=== PATIENT | female | born 1960 | race Caucasian/White ===

== ENCOUNTER 2021-09-30 10:13 | Emergency (ER) | payer OTHER, SELFPAY ==
[2021-09-30] VITALS (8 sets, daily range): BP systolic 130–143; BP diastolic 65–82; PULSE 82–99; RESP 18; TEMP 37.2; O2SAT 94–98; BMI 27.4
[2021-09-30 11:01] LABS: Alanine Aminotransferase 41 IU/L (<35); Albumin 4.1 g/dL (3.5-5.0); Albumin Globulin Ratio 1.5 (1.0-2.8); Alkaline Phosphatase 45 U/L (38-126); Aspartate Aminotransferase 47 IU/L (14-36); BUN Creatinine Ratio 15.6 (6-22); Bilirubin Total 0.7 mg/dL (0.2-1.3); Blood Urea Nitrogen 12 mg/dL (7-17); Carbon Dioxide 25 mmol/L (22-32); Chloride 107 mmol/L (98-107); Estimated Glomerular Filt Rate > 60 mL/min (>60); Globulin 2.8 g/dL (1.7-4.1); Glucose 120 mg/dL (80-110); HEMOLYSIS < 15 (0-50); Lipase 73 U/L (23-300); Potassium 3.7 mmol/L (3.4-5.1); Sodium 140 mmol/L (137-145); Total Protein 6.9 g/dL (6.3-8.2)
[2021-09-30 11:10] LABS: Add Manual Diff / Slide Review NO; Basophils Absolute Auto 0 /uL (0-100); Basophils Percent Auto 0.5 % (0-2); Eosinophils Absolute Auto 0 /uL (0-450); Eosinophils Percent Auto 0.8 % (2-4); Hematocrit 42.5 % (36-46); Hemoglobin 14.6 g/dL (12.0-16.0); Lymphocytes Absolute Auto 1500 /uL (1100-4500); Mean Corpuscular HGB Conc 34.5 % (30-36); Mean Corpuscular Hemoglobin 32.7 PG (26-34); Monocytes Absolute Auto 500 /uL (0-900); Monocytes Percent Auto 8.7 % (3-14); Neutrophils Absolute Auto 3600 /uL (1500-7000); Platelet Count 227 X10^3/uL (150-400); Red Blood Cell Count 4.47 X10^6/uL (4.0-5.2); White Blood Cell Count 5.7 X10^3/uL (4.5-11.0)
--- NOTE | 2021-09-30 11:34 | DI.CT.S_ITS ---
PROCEDURE: CT ABDOMEN PELVIS W CON INDICATIONS: IV contrast only/right upper quadrant pain TECHNIQUE: After the administration of intravenous contrast, axial sections acquired from the lung bases to the pubic symphysis. Coronal and sagittal reformats were performed. For radiation dose reduction, the following was used: automated exposure control, adjustment of mA and/or kV according to patient size. COMPARISON: None. FINDINGS: Lower thorax: Minimal basilar atelectasis noted, right greater than left. Liver: In the right hepatic lobe, there is a solitary cystic mass lesion with probable internal necrosis measuring 6.3 x 4.2 x 6.0 cm. Irregular wall thickening enhancement present. Diffuse hepatic fatty infiltration noted. Biliary system: No calcified cholelithiasis or pericholecystic inflammation. No intra or extrahepatic bile duct dilatation. Pancreas: Unremarkable without mass or inflammation evident. Spleen: Normal in size and density. Adrenals: Normal morphology and density. Reproductive system: Unremarkable as visualized. Urinary system: Normal renal size and attenuation. No renal calculi, hydronephrosis, or solid mass present. Urinary bladder unremarkable. Gastrointestinal system: The bowel is unremarkable without evidence of bowel obstruction or inflammation. The stomach appears unremarkable. Multiple diverticula arise from the left and sigmoid colon without evidence of diverticulitis. Appendix: No findings to suggest acute appendicitis. Peritoneal spaces: No mesenteric or retroperitoneal adenopathy. No free air. No free fluid. Vasculature: The IVC, aorta and iliac vasculature are unremarkable. Abdominal wall: Abdominal wall intact without evidence of ventral or inguinal hernias. Musculoskeletal: Normal bone mineralization. Degenerative disc disease and arthropathy noted in lower lumbar spine. No acute fractures. IMPRESSION: 1. Irregular large cystic mass lesion in the right hepatic lobe. Primary neoplastic and metastatic etiologies considered. Less likely differential would be hepatic abscess. Approved by: Eric Cardoza M.D. on 09/30/2021 at 12:11
--- NOTE | 2021-09-30 11:35 | ED.ABDPAIN ---
HPI - Abdominal Pain General Chief Complaint: Abdominal Pain Stated Complaint: rt abd pain, extreme Time Seen by Provider: 09/30/21 11:12 Source: patient Mode of arrival: Family Vehicle History of Present Illness HPI narrative: Patient here for right upper quadrant pain it started yesterday evening and has been constant. Sharp pain right required radiate down to right lower quadrant. Worse with movement. No fever chills no nausea or vomiting. No urinary complaints. Still has her appendix and gallbladder. Patient treated for breast cancer in 2018. Had mastectomy. No chemotherapy no radiation. Patient does not recall other than mammograms any other imaging/MRI/PET scan. She is on tamoxifen. Her oncology services is in [place] Related Data Previous Rx's Medication Instructions Recorded hydrocodone 5 mg-acetaminophen 325 1 tab PO Q6H PRN pain #16 tabs 09/30/21 mg tablet ondansetron 4 mg disintegrating 4 mg PO Q8H PRN nausea and 09/30/21 tablet vomiting #10 tabs Allergies Allergy/AdvReac Type Severity Reaction Status Date / Time bee venom protein (honey bee) Allergy Anaphylaxis Verified 09/30/21 10:22 latex Allergy Hives Verified 09/30/21 10:22 erythromycin base AdvReac Vomiting Verified 09/30/21 10:21 Review of Systems Review of Systems Narrative: GENERAL: Denies chills, fatigue, malaise, fever, sweats. HEENT: Denies sinus pain, ear pain, sore throat RESPIRATORY: Denies dyspnea, cough CARDIOVASCULAR: Denies chest pain, palpitations GASTROINTESTINAL: Denies nausea, vomiting, positive for abdominal pain : Denies dysuria, frequency, hematuria MUSCULOSKELETAL: denies muscle or bony pain SKIN: Denies rash, skin lesions NEUROLOGIC: Denies weakness, numbness ROS Unobtainable: All systems reviewed & are unremarkable except as noted in HPI and below Patient History Social History Smoking Status: Never smoker Smoking Status: Never smoker alcohol intake frequency: 0-2 drinks per day Substance Use Type: does not use Exam Narrative Exam Narrative: GENERAL: in no distress, not toxic not dyspneic HEAD: Normocephalic. EYES: Pupils equal round No scleral icterus. ENT: Mucous membranes moist. NECK: Trachea midline. CARDIOVASCULAR: Regular rate and rhythm without murmurs RESPIRATORY: Clear to auscultation. Breath sounds equal bilaterally. No wheezes, rales, or rhonchi. GASTROINTESTINAL: Abdomen soft, reproducible right upper quadrant tenderness, positive Guerra sign. No CVA tenderness. Bowel sounds are present. No peritoneal signs. EXTREMITIES: No gross deformities. BACK: No flank tenderness. NEURO: AOx4. SKIN: Warm and dry PSYCH: Not anxious, is cooperative Initial Vital Signs Initial Vital Signs: Vital Signs Temperature 98.9 F 09/30/21 10:22 Pulse Rate 99 H 09/30/21 10:22 Respiratory Rate 18 09/30/21 10:22 Blood Pressure 130/81 09/30/21 10:22 Pulse Oximetry 96 09/30/21 10:22 Oxygen Delivery Method 09/30/21 10:22 Course Course Course Narrative: No new issues during course of stay Orders Ordered: ED Orders 09/30/21 10:29 Complete Blood Count AUTO DIFF Stat Comprehensive Metabolic Panel Stat Lipase Stat 09/30/21 11:34 CT abdomen pelvis w con Stat 09/30/21 13:27 US abdomen limited Stat Discontinued Medications Sodium Chloride (Normal Saline 0.9%) 500 mls @ 1,000 mls/hr IV BOLUS ONE Stop: 09/30/21 12:03 Last Infusion: 09/30/21 13:04 Dose: 0 mls/hr Documented By: Admin: 09/30/21 11:45 Dose: 1,000 mls/hr Documented By: TIAN Morphine Sulfate (Morphine 4 Mg/Ml Inj) 4 mg IV NOW ONE Stop: 09/30/21 11:35 Last Admin: 09/30/21 11:46 Dose: 4 mg Documented By: TIAN Ondansetron HCl (Ondansetron 4 Mg/2 Ml Inj) 4 mg IV NOW ONE Stop: 09/30/21 11:35 Last Admin: 09/30/21 11:46 Dose: 4 mg Documented By: TIAN Reevaluation(s) Reevaluation #1: Spoke with patient results blood work and imaging. It is concerning for metastatic breast cancer. She does have established oncology. She will contact her oncologist on Saturday for findings of CT scan and ultrasound today. Pain controlled at time of discharge. She does desire discharge home. She has a explosives truck driver. Time: 16:26 Vital Signs Vital signs: Vital Signs - 8 hr 09/30/21 13:51 09/30/21 13:55 09/30/21 13:55 Pulse Rate 94 H Blood Pressure 140/75 Pulse Oximetry 96 94 09/30/21 14:00 09/30/21 14:00 09/30/21 14:30 Pulse Rate 83 Blood Pressure 137/75 130/65 Pulse Oximetry 98 09/30/21 14:30 09/30/21 15:00 09/30/21 15:00 Pulse Rate 82 88 Blood Pressure 135/66 Pulse Oximetry 97 96 09/30/21 15:30 09/30/21 15:30 09/30/21 16:29 Pulse Rate 83 Blood Pressure 134/73 143/82 H Pulse Oximetry 97 MDM - Abdominal Pain Differential Diagnosis Differential diagnosis: Likely abdominal pain, acute appendicitis, calculus of kidney, constipation, diverticulitis, pancreatitis, small bowel obstruction and other (Cholecystitis) Lab Data Result diagrams: 09/30/21 10:29 09/30/21 10:29 Labs: Lab Results 09/30/21 09/30/21 Range/Units 10:29 10:29 WBC 5.7 (4.5-11.0) X10^3/uL RBC 4.47 (4.0-5.2) X10^6/uL Hgb 14.6 (12.0-16.0) g/dL Hct 42.5 (36-46) % MCV 95.0 (80-100) fL MCH 32.7 (26-34) PG MCHC 34.5 (30-36) % RDW 13.0 (11.6-14.8) % Plt Count 227 (150-400) X10^3/uL Neut % (Auto) 64.0 (50-75) % Lymph % (Auto) 26.0 (25-40) % [place] % (Auto) 8.7 (3-14) % Eos % (Auto) 0.8 L (2-4) % Baso % (Auto) 0.5 (0-2) % Neut # (Auto) 3600 (4218-1790) /uL Lymph # (Auto) 1500 (4818-0152) /uL [place] # (Auto) 500 (0-900) /uL Eos # (Auto) 0 (0-450) /uL Baso # (Auto) 0 (0-100) /uL Sodium 140 (137-145) mmol/L Potassium 3.7 (3.4-5.1) mmol/L Chloride 107 (98-107) mmol/L Carbon Dioxide 25 (22-32) mmol/L BUN 12 (7-17) mg/dL Creatinine 0.77 (0.52-1.04) mg/dL Estimated GFR > 60 (>60) mL/min BUN/Creatinine Ratio 15.6 (6-22) Glucose 120 H (80-110) mg/dL Calcium 9.0 (8.4-10.2) mg/dL Total Bilirubin 0.7 (0.2-1.3) mg/dL AST 47 H (14-36) IU/L ALT 41 H (<35) IU/L Alkaline Phosphatase 45 (38-126) U/L Total Protein 6.9 (6.3-8.2) g/dL Albumin 4.1 (3.5-5.0) g/dL Globulin 2.8 (1.7-4.1) g/dL Albumin/Globulin Ratio 1.5 (1.0-2.8) Lipase 73 (23-300) U/L Point of care testing: Urine Dip Bedside Urine Glucose Negative Bedside Urine Bilirubin - Negative Bedside Urine Ketone - Negative Urine Specific [place] 1.015 Bedside Urine Occult Blood - Negative Bedside Urine pH 6.0 Bedside Urine Protein - Negative Bedside Urine Urobilinogen - Negative Bedside Urine Nitrite - Negative Bedside Urine Leukocytes - Negative Esterase Imaging Data CT scan - abdomen/pelvis: Radiologist's Impression: [place] [address] CT Scan Report Signed Patient: Arin Nina MR#: [id number] : 1960 Acct:[id number] Age/Sex: 61 / F Date of Service: 09/30/21 Loc: ED Accession Number: [id number] ?? Procedure: CT abdomen pelvis w con Ordering Provider: Hi Stanley MD PROCEDURE:? CT ABDOMEN PELVIS W CON ? INDICATIONS:? IV contrast only/right upper quadrant pain ? TECHNIQUE:? After the administration of intravenous contrast, axial sections acquired from the lung bases to the pubic symphysis.? Coronal and sagittal reformats were performed.? For radiation dose reduction, the following was used:? automated exposure control, adjustment of mA and/or kV according to patient size.? ? COMPARISON:? None. ? FINDINGS: ? Lower thorax:? Minimal basilar atelectasis noted, right greater than left. ? Liver:? In the right hepatic lobe, there is a solitary cystic mass lesion with probable internal necrosis measuring 6.3 x 4.2 x 6.0 cm.? Irregular wall thickening enhancement present.? Diffuse hepatic fatty infiltration noted. ? Biliary system:? No calcified cholelithiasis or pericholecystic inflammation.? No intra or extrahepatic bile duct dilatation. ? Pancreas:? Unremarkable without mass or inflammation evident. ? Spleen:? Normal in size and density. ? Adrenals:? Normal morphology and density. ? Reproductive system:? Unremarkable as visualized. ? Urinary system:? Normal renal size and attenuation. No renal calculi, hydronephrosis, or solid mass present.? Urinary bladder unremarkable. ? Gastrointestinal system:? The bowel is unremarkable without evidence of bowel obstruction or inflammation. The stomach appears unremarkable.? Multiple diverticula arise from the left and sigmoid colon without evidence of diverticulitis. ? ? Appendix:? No findings to suggest acute appendicitis. ? Peritoneal spaces:? No mesenteric or retroperitoneal adenopathy.? No free air.? No free fluid.? ? Vasculature:? The IVC, aorta and iliac vasculature are unremarkable. ? Abdominal wall:? Abdominal wall intact without evidence of ventral or inguinal hernias. ? Musculoskeletal:? Normal bone mineralization.? Degenerative disc disease and arthropathy noted in lower lumbar spine.? No acute fractures.? ? IMPRESSION: ? 1. Irregular large cystic mass lesion in the right hepatic lobe.? Primary neoplastic and metastatic etiologies considered.? Less likely differential would be hepatic abscess. ? Approved by: Eric Cardoza M.D. on 09/30/2021 at 12:11? US - abdomen: Radiologist's Impression: [address] [address] Ultrasound Report Signed Patient: Arin Nina MR#: [id number] : 1960 Acct:[id number] Age/Sex: 61 / F Date of Service: 09/30/21 Loc: ED Accession Number: [id number] ?? Procedure: US abdomen limited Ordering Provider: Hi Stanley MD PROCEDURE:? US ABDOMEN LIMITED ? INDICATIONS:? Right upper quadrant pain.? History of breast cancer ? TECHNIQUE:? Real-time scanning was performed of the abdominal and retroperitoneal organs, with image documentation.? ? COMPARISON:? None. ? FINDINGS: ? Liver:? Solid-appearing right hepatic mass lesion measures 7.1 x 3.6 x 8.7 cm.? No Doppler vascularity identified in.? Heterogenous hepatic echotexture? ? Gallbladder:? Sonolucent without cholelithiasis.? No gallbladder wall thickening. No pericholecystic fluid or Guerra's sign. ? Common Bile Duct:? 6.2 mm. ? Pancreas:? Unremarkable as visualized ? IMPRESSION: ? 1. Solid-appearing right hepatic mass lesion would be amenable to image-guided percutaneous biopsy ? Approved by: Eric Cardoza M.D. on 09/30/2021 at 14:50? MDM Narrative Medical decision making narrative: Appropriate for discharge home. Labs and imaging otherwise reassuring and patient is aware this could be metastatic breast cancer to the liver. Return precautions reviewed with her. She is currently being followed by Oncology. Pain controlled at discharge. Not toxic. 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 Discharge Plan Departure Patient Disposition: Home Clinical Impression: Liver mass, right lobe Instructions: DI for Abdominal Pain-Adult Activity Restrictions/Additional Instructions: No driving or operating machinery today. Please call your oncology provider on Saturday for findings of CT scan today concerning for metastatic cancer. You will likely need biopsy of this lesion. You have been prescribed pain medication. No driving or operating machinery when taking this medication. Return if worse or for any questions or concerns Prescriptions: New hydrocodone-acetaminophen 5-325 mg tablet 1 tab PO Q6H PRN (Reason: pain) Qty: 16 0RF ondansetron 4 mg tablet,disintegrating 4 mg PO Q8H PRN (Reason: nausea and vomiting) Qty: 10 0RF Referrals: Omer Roper MD [Primary Care Provider] - Visit Report Forms: Patient Portal/API
[2021-09-30] MEDS: SODIUM CHLORIDE 0.9% 500 ML 1000 ML IV (11:45)
[2021-09-30] MEDS: MORPHINE 4 MG/ML INJ IV (11:46)
[2021-09-30] MEDS: ONDANSETRON 4 MG/2 ML INJ IV (11:46)
--- NOTE | 2021-09-30 13:27 | DI.US.S_ITS ---
PROCEDURE: US ABDOMEN LIMITED INDICATIONS: Right upper quadrant pain. History of breast cancer TECHNIQUE: Real-time scanning was performed of the abdominal and retroperitoneal organs, with image documentation. COMPARISON: None. FINDINGS: Liver: Solid-appearing right hepatic mass lesion measures 7.1 x 3.6 x 8.7 cm. No Doppler vascularity identified in. Heterogenous hepatic echotexture Gallbladder: Sonolucent without cholelithiasis. No gallbladder wall thickening. No pericholecystic fluid or Guerra's sign. Common Bile Duct: 6.2 mm. Pancreas: Unremarkable as visualized IMPRESSION: 1. Solid-appearing right hepatic mass lesion would be amenable to image-guided percutaneous biopsy Approved by: Eric Cardoza M.D. on 09/30/2021 at 14:50
== END 2021-09-30 16:33 | disposition home or self-care (01) ==
PROVIDERS: Emergency Provider Emergency Medicine; PCP Internal Medicine
DX: R16.0 Hepatomegaly, not elsewhere classified (principal); Z85.3 Personal history of malignant neoplasm of breast
CPT/HCPCS: 36415; 74177; 76705; 80053; 81003; 83690; 85025; 96361; 96374; 96375; 99284; J2270; J2405; Q9967

== ENCOUNTER 2022-09-29 17:16 | Emergency (ER) | payer OTHER, SELFPAY ==
[2022-09-29] VITALS (8 sets, daily range): BP systolic 95–140; BP diastolic 61–77; PULSE 96–107; RESP 10–23; TEMP 36.1; O2SAT 95–100; BMI 23.6
--- NOTE | 2022-09-29 17:53 | DI.RAD.S_ITS ---
PROCEDURE: XR CHEST 1V INDICATIONS: chest pain TECHNIQUE: One view of the chest was acquired. COMPARISON: None. FINDINGS: Surgical changes and devices: Left tunneled port device is in place. Multiple surgical clips project over the lower right chest. Surgical clips noted in the right lower neck. Lungs and pleura: Lungs are clear. No pleural effusions or pneumothorax. Mild eventration of the left hemidiaphragm. No focal consolidation. Mediastinum: Mediastinal contours appear normal. Heart size is normal. Bones and chest wall: No suspicious bony lesions. Overlying soft tissues appear unremarkable. Moderate gaseous distension of the stomach. IMPRESSION: Chest without acute cardiopulmonary abnormalities. No focal airspace disease. Moderate gaseous distension of the stomach. Dictated by: Dalton Stone M.D. on 09/29/2022 at 18:28 Approved by: Dalton Stone M.D. on 09/29/2022 at 18:30
--- NOTE | 2022-09-29 17:54 | DI.US.S_ITS ---
PROCEDURE: US PERIPH VENOUS UP EXTREM LT INDICATIONS: SHOULDER PAIN; HX DVT LUE TECHNIQUE: Real-time imaging, as well as color and pulse Doppler interrogation, was performed of the left upper extremity deep veins from the inferior neck to the antecubital fossa. COMPARISON: None. FINDINGS: There appears to be an occlusive thrombus at is not well visualized involving the left internal jugular vein. The remaining deep venous structures of the left upper extremity appear patent. IMPRESSION: Deep venous thrombus involving the left internal jugular vein. Dictated by: Dalton Stone M.D. on 09/29/2022 at 18:06 Approved by: Dalton Stone M.D. on 09/29/2022 at 18:08
[2022-09-29 18:09] LABS: Add Manual Diff / Slide Review NO; Basophils Absolute Auto 0 /uL (0-100); Basophils Percent Auto 0.3 % (0-2); Eosinophils Absolute Auto 0 /uL (0-450); Eosinophils Percent Auto 0.8 % (2-4); Hematocrit 37.6 % (36-46); Hemoglobin 12.9 g/dL (12.0-16.0); Lymphocytes Absolute Auto 1900 /uL (1100-4500); Lymphocytes Percent Auto 31.7 % (25-40); Mean Corpuscular HGB Conc 34.2 % (30-36); Mean Corpuscular Hemoglobin 35.2 PG (26-34); Mean Corpuscular Volume 102.9 fL (80-100); Monocytes Absolute Auto 600 /uL (0-900); Monocytes Percent Auto 9.9 % (3-14); Neutrophils Absolute Auto 3400 /uL (1500-7000); Neutrophils Percent Auto 57.3 % (50-75); Platelet Count 152 X10^3/uL (150-400); Red Blood Cell Count 3.65 X10^6/uL (4.0-5.2); Red Cell Distribution Width 19.4 % (11.6-14.8)
--- NOTE | 2022-09-29 18:25 | PC.NURSE ---
Pt c/o two days moderate to severe pain of left chest, shoulder, and axilla.
--- NOTE | 2022-09-29 18:25 | PC.NURSE ---
Ultrasound at bedside
[2022-09-29 18:26] LABS: INR 1.1 (0.9-1.3); Prothrombin Time 12.5 SECONDS (10.1-12.7)
[2022-09-29 18:28] LABS: HEMOLYSIS 33 (0-50); PTT Partial Thromboplastin Tim 35 SECONDS (26-36); Sodium 137 mmol/L (137-145)
[2022-09-29 18:29] LABS: Albumin 4.4 g/dL (3.5-5.0); Carbon Dioxide 28 mmol/L (22-32); Chloride 103 mmol/L (98-107); Estimated Glomerular Filt Rate > 60 mL/min (>60)
[2022-09-29 18:32] LABS: Alanine Aminotransferase 35 IU/L (<35); Albumin Globulin Ratio 1.3 (1.0-2.8); Alkaline Phosphatase 52 U/L (38-126); Aspartate Aminotransferase 47 IU/L (14-36); Bilirubin Total 0.8 mg/dL (0.2-1.3); Blood Urea Nitrogen 16 mg/dL (7-17); Calcium 9.4 mg/dL (8.4-10.2); Creatine Kinase 37 U/L (30-135); Globulin 3.5 g/dL (1.7-4.1); Glucose 103 mg/dL (80-110); Lipase 144 U/L (23-300); Magnesium 1.9 mg/dL (1.6-2.3); Potassium 4.3 mmol/L (3.4-5.1); Total Protein 7.9 g/dL (6.3-8.2)
[2022-09-29 18:42] LABS: Troponin I < 0.012 ng/mL (0.01-0.034)
--- NOTE | 2022-09-29 18:56 | DI.CT.S_ITS ---
PROCEDURE: CT ANGIO HEAD AND NECK INDICATIONS: L jugular DVT TECHNIQUE: Pre-contrast 4.5 mm thick sections acquired from the foramen magnum to the vertex. After the administration of intravenous contrast, 1 mm thick sections acquired from the aortic arch through the [place]. Post-contrast 4.5 mm thick sections then re-acquired from the foramen magnum to the vertex. 3-dimensional zgzzhbk-yrevbyrmh-nryxuplero (MIP) and/or volume rendering reformats were acquired of the central intracranial vasculature and neck separately. For radiation dose reduction, the following was used: automated exposure control, adjustment of mA and/or kV according to patient size. COMPARISON: [facility], , [facility] VENOUS UP EXTREM LT, 09/29/2022, 18:26. FINDINGS: Image quality: Excellent. BRAIN: CSF spaces: Ventricles are normal in size and shape. Basal cisterns are patent. No extra-axial fluid collections. Brain: No midline shift. No intracranial bleeds or masses. Strickland-white matter interface appears intact. Skull and face: Calvarium and facial bones appear intact, without suspicious lesions. Orbits appear normal. Sinuses: Sinuses and mastoids are clear. HEAD CT ANGIOGRAPHY: Anterior circulation: Intracranial internal carotid arteries are normal in size and flow. The flow within the paired anterior cerebral arteries is normal and symmetric. The flow within the middle cerebral arteries is normal and symmetric. The anterior communicating artery is seen. No aneurysms are seen. Posterior circulation: Visualized portions of the vertebral arteries demonstrate normal caliber, and join to form a normal appearing basilar artery. Flow within the posterior cerebral arteries is normal and symmetric. No aneurysms are seen. NECK CT ANGIOGRAPHY: Carotid system: The great vessels demonstrate a conventional anatomy as they arise from the aortic arch. The origins of the common carotid arteries appear patent. The common carotid arteries demonstrate normal caliber and courses. The bifurcation regions are both widely patent. The internal carotid arteries demonstrate normal calibers and courses. Posterior circulation: The origins of the vertebral arteries both appear widely patent. The more superior extracranial portions of both vertebral arteries also demonstrate normal courses and calibers. They join to form a normal appearing basilar artery. Soft tissues: Visualized neck soft tissues demonstrate no suspicious abnormalities. Note is made of a left-sided Port-A-Cath with catheter crossing the midline and extending inferiorly into the superior vena cava. Normal contrast enhancement within the left lobe plate in vein is not seen. Bones: No suspicious bony lesions. Visualized cervical spine appears normally aligned. IMPRESSION: No arterial abnormality involving the cervical or skull base arterial vasculature, no evidence of embolic disease, ischemic injury, or mass lesion. Please also refer to the vascular venous ultrasound also performed today identifying deep venous thrombosis as discussed above. Normal Port-A-Cath positioning from left-sided approach. Any quantitative measurements of stenosis were performed using NASCET criteria. Dictated by: Wing Hua M.D. on 09/29/2022 at 20:15 Approved by: Wing Hua M.D. on 09/29/2022 at 20:19
--- NOTE | 2022-09-29 18:56 | DI.CT.S_ITS ---
PROCEDURE: CT ANGIO CHEST PE PROTOCOL INDICATIONS: DVT L jugular TECHNIQUE: After the administration of intravenous contrast, 2 mm thick sections acquired from the pulmonary apices to the posterior costophrenic angles. 3-dimensional maximum intensity projection (MIP) coronal and sagittal reformats were then acquired through the thorax. For radiation dose reduction, the following was used: automated exposure control, adjustment of mA and/or kV according to patient size. COMPARISON: None. FINDINGS: Image quality: Mildly motion degraded Lungs and pleura: Bibasilar atelectasis. Trace right pleural effusion. Ground-glass nodule in the right upper lung measures 9 mm. Mediastinum, heart, and esophagus: No hiatal hernia. Normal heart size. There are coronary calcifications. Prominent mediastinal lymph nodes could be reactive, attention on follow-up. No acute pulmonary embolism. The distal arteries are somewhat obscured by motion. Chest wall and thyroid: A left port catheter terminates in the SVC. DVT better seen on vascular ultrasound. Upper abdomen: Postsurgical liver changes. No gross abnormality on these arterial phase images. Bones: No acute or suspicious osseous finding. Abdomen: Visualized upper abdominal solid organs appear normal in the early arterial phase of enhancement. IMPRESSION: Small right pleural effusion. Suspected basal atelectasis. 9 mm right upper lobe ground-glass nodule, consider follow-up CT in 6 months or sooner. Mildly artifact degraded CT. No pulmonary embolism identified. Dictated by: Donald Sanchez M.D. on 09/29/2022 at 19:55 Approved by: Donald Sanchez M.D. on 09/29/2022 at 20:01
--- NOTE | 2022-09-29 21:54 | ED.CHESTPAIN ---
HPI - Chest Pain General Chief Complaint: Chest Pain Stated Complaint: Shoulder pain, Chest pain, Poss blood clot Time Seen by Provider: 09/29/22 18:21 Source: patient Mode of arrival: Family Vehicle Limitations: no limitations History of Present Illness HPI narrative: 62-year-old woman with a history of prior breast cancer post mastectomy currently in remission, cholangiocarcinoma with oncology services in [place], port in place in the left side of her chest and cholangiocarcinoma is apparently currently in remission as well. She has had a upper extremity DVT related to her port when it was placed proximally year ago and she was on Eliquis for 3 months at that time. Two days ago she stood up after dinner and had the acute onset of left-sided neck anterior chest axilla and subclavicular pain that felt suspiciously like if felt with the initial DVT. She denies fever, cough, chills, dyspnea, tachycardia. Related Data Previous Rx's Medication Instructions Recorded hydrocodone 5 mg-acetaminophen 325 1 tab PO Q6H PRN pain #16 tabs 09/30/21 mg tablet ondansetron 4 mg disintegrating 4 mg PO Q8H PRN nausea and 09/30/21 tablet vomiting #10 tabs apixaban 5 mg tablet (Eliquis) 5 mg PO BID #180 tabs 09/29/22 Allergies Allergy/AdvReac Type Severity Reaction Status Date / Time bee venom protein (honey bee) Allergy Anaphylaxis Verified 09/29/22 17:44 latex Allergy Hives Verified 09/29/22 17:44 erythromycin base AdvReac Vomiting Verified 09/29/22 17:44 Review of Systems Review of Systems Narrative: Pertinent positive and negative findings as per HPI Patient History Medical History (Updated 09/29/22 @ 22:25 by Tala Hurtado MD) Breast cancer Cholangiocarcinoma Social History Smoking Status: Never smoker Smoking Status: Never smoker alcohol intake frequency: 0-2 drinks per day Substance Use Type: does not use Exam Initial Vital Signs Initial Vital Signs: Vital Signs Temperature 97.0 F L 09/29/22 17:44 Pulse Rate 107 H 09/29/22 17:44 Respiratory Rate 18 09/29/22 17:44 Blood Pressure 117/77 09/29/22 17:44 Pulse Oximetry 100 09/29/22 17:44 Oxygen Delivery Method Room Air 09/29/22 17:44 General: Healthy appearing, in no acute distress. Able to give a complete and coherent history. Well-nourished well-developed HEENT: Moist mucous membranes, normal sclera with reactive pupils, Neck: Mild tenderness on the left side without cervical adenopathy or venous distention Respiratory: Lungs are clear to auscultation, no wheezing no rales no rhonchi. Full and symmetrical air movement Cardiac: Minor tachycardia but otherwise Regular rate and rhythm no murmurs no bruits Abdomen: Soft, nontender, good bowel tones, no flank pain Skin: Warm and dry, no rashes Neurologic: Grossly neurologically intact with no obvious asymmetries or abnormalities Extremities: No trauma, well perfused, no edema Psych: Cooperative, appropriate insight and affect Course Orders Ordered: ED Orders 09/29/22 17:53 XR chest 1V Stat 09/29/22 17:54 US periph venous up extrem lt Stat 09/29/22 17:59 Complete Blood Count AUTO DIFF Stat Comprehensive Metabolic Panel Stat Lipase Stat Magnesium Stat PTT Partial Thromboplastin Ion Stat Prothrombin Time INR Stat Troponin & CK Cardiac Panel Stat 09/29/22 18:03 EKG-12 Lead Stat 09/29/22 18:56 CT angio chest PE protocol Stat CT angio head and neck Stat Discontinued Medications Aspirin (Aspirin 81 Mg Chew Tab) 324 mg PO NOW ONE Stop: 09/29/22 17:54 Vital Signs Vital signs: Vital Signs - 8 hr 09/29/22 17:44 09/29/22 18:17 09/29/22 19:02 Temperature 97.0 F L Pulse Rate 107 H 97 H Respiratory Rate 18 Blood Pressure 117/77 140/67 114/70 Pulse Oximetry 100 100 Oxygen Delivery Method Room Air Room Air 09/29/22 19:02 09/29/22 19:39 09/29/22 19:40 Temperature Pulse Rate 96 H 102 H 101 H Respiratory Rate 14 23 19 Blood Pressure Pulse Oximetry 95 98 99 Oxygen Delivery Method Room Air 09/29/22 19:40 09/29/22 20:00 09/29/22 20:00 Temperature Pulse Rate 100 H Respiratory Rate 13 Blood Pressure 106/62 102/61 Pulse Oximetry 96 Oxygen Delivery Method 09/29/22 20:30 09/29/22 20:30 09/29/22 21:00 Temperature Pulse Rate 101 H Respiratory Rate 12 Blood Pressure 95/63 105/64 Pulse Oximetry 96 Oxygen Delivery Method 09/29/22 21:00 Temperature Pulse Rate 101 H Respiratory Rate 10 L Blood Pressure Pulse Oximetry 97 Oxygen Delivery Method MDM - Chest Pain Lab Data 09/29/22 17:59 09/29/22 17:59 Labs: Lab Results 09/29/22 09/29/22 09/29/22 Range/Units 17:59 17:59 17:59 WBC 6.0 (4.5-11.0) X10^3/uL RBC 3.65 L (4.0-5.2) X10^6/uL Hgb 12.9 (12.0-16.0) g/dL Hct 37.6 (36-46) % MCV 102.9 H (80-100) fL MCH 35.2 H (26-34) PG MCHC 34.2 (30-36) % RDW 19.4 H (11.6-14.8) % Plt Count 152 (150-400) X10^3/uL Neut % (Auto) 57.3 (50-75) % Lymph % (Auto) 31.7 (25-40) % [place] % (Auto) 9.9 (3-14) % Eos % (Auto) 0.8 L (2-4) % Baso % (Auto) 0.3 (0-2) % Neut # (Auto) 3400 (2750-2681) /uL Lymph # (Auto) 1900 (9955-8485) /uL [place] # (Auto) 600 (0-900) /uL Eos # (Auto) 0 (0-450) /uL Baso # (Auto) 0 (0-100) /uL PT 12.5 (10.1-12.7) SECONDS INR 1.1 (0.9-1.3) APTT 35 (26-36) SECONDS Sodium 137 (137-145) mmol/L Potassium 4.3 (3.4-5.1) mmol/L Chloride 103 (98-107) mmol/L Carbon Dioxide 28 (22-32) mmol/L BUN 16 (7-17) mg/dL Creatinine 0.64 (0.52-1.04) mg/dL Estimated GFR > 60 (>60) mL/min BUN/Creatinine Ratio 25.0 H (6-22) Glucose 103 (80-110) mg/dL Calcium 9.4 (8.4-10.2) mg/dL Magnesium 1.9 (1.6-2.3) mg/dL Total Bilirubin 0.8 (0.2-1.3) mg/dL AST 47 H (14-36) IU/L ALT 35 H (<35) IU/L Alkaline Phosphatase 52 (38-126) U/L Total Creatine Kinase 37 (30-135) U/L Troponin I < 0.012 (0.01-0.034) ng/mL Total Protein 7.9 (6.3-8.2) g/dL Albumin 4.4 (3.5-5.0) g/dL Globulin 3.5 (1.7-4.1) g/dL Albumin/Globulin Ratio 1.3 (1.0-2.8) Lipase 144 (23-300) U/L MDM Narrative Medical decision making narrative: CC: Left neck and shoulder pain, acute problem uncertain prognosis Complicating co-morbidities: Port in place in the left chest, recent diagnosis for cholangiocarcinoma in remission currently Data collected from: patient, Social determinants of health that may influence the patients condition: Care is through the [facility] in [place] with most of her surgical care through [facility] in the [facility]. They are visiting the area for another 4 weeks. Medical records reviewed: Recent ER notes are reviewed Differential considered: DVT, pulmonary embolism, acute coronary syndrome, pneumothorax, metastatic disease Exam documented above, pertinent findings include: Superficial tenderness around her port into the axilla, the subclavicular area without significant tenderness up into the neck. There is no vascular congestion. Remainder of exam is benign Lab Test results independently reviewed as above. Pertinent findings: CBC is unremarkable Metabolic panel is unremarkable with the exception of slightly elevated AST and ALT similar to a year ago. Independently reviewed EKG shows sinus rhythm at a rate of 103, no acute ischemic changes, normal axis Imaging studies independently reviewed: Vascular ultrasound of the upper extremity shows a DVT involving the left internal jugular vein Chest CT shows no evidence of pulmonary embolism, small right pleural effusion otherwise unremarkable exam CT angiogram of the head and neck No arterial abnormality involving the cervical or skull base arterialvasculature, no evidence of embolic disease, ischemic injury, or mass lesion.? Normal Port-A-Cath positioning from left-sided approach. Treatments: Apixaban 5 mg is given in the emergency department and prescription is given, parenteral dose of Dilaudid for pain control Discussion: 62-year-old woman who now has no recurrent breast cancer or cholangiocarcinoma. She does still have a port in the left side and now has a DVT in the left jugular vein without any other consequences appreciated with studies done today. She is having some pain in and around that area consistent with a vascular congestion. She has 2 mg Dilaudid tablets available for pain control as prescribed by her oncologist and per her reports has plenty of these and does not need any additional medication. She did have a DVT in the upper extremity related to the same port when it was initially placed approximately a year ago and was on Eliquis for 3 months at that time. Currently will need at least 3 months and probably lifetime treatment. She will follow-up with her oncologist within the next couple of weeks. There is no evidence of additional consequences. She is given a disc with all of the imaging studies done in the emergency department today and studies are also push to [facility] to hopefully make sure all of her [place] providers will have access to imaging done today. Questions are answered she is safe for discharge Discharge Plan Departure Patient Disposition: Home Clinical Impression: DVT (deep venous thrombosis) Qualifiers: DVT location: non-extremity vein Chronicity: acute Qualified Code(s): I82.90 - Acute embolism and thrombosis of unspecified vein Activity Restrictions/Additional Instructions: Thank you for coming in today You have a DVT in your left internal jugular. You have been given an initial dose of Eliquis today and a prescription for at least 3 months. Please make sure you discuss this with your oncologist, you likely will need a minimum of 6 months and probably lifelong treatment to prevent further clots. A prescription for 90 days was electronically transmitted to [facility] in [place]. I am not seeing any life-threatening sequelae of the clots or at this time and your brain vascular study is quite reassuring. There is no evidence of pulmonary embolism I have given you a disc with all of your imaging studies I have also electronically transmitted all of these imaging studies to [facility] Radiology system to hopefully better Coordinate your follow-up care. It is okay to use the Dilaudid that you have available to help with pain control. Please make sure you are also using MiraLax should you develop constipation Dilaudid. If you find that you are getting worse or develop any new symptoms, please feel free to return to the emergency department for further evaluation. Prescriptions: New Eliquis 5 mg tablet 5 mg PO BID Qty: 180 0RF No Action hydrocodone-acetaminophen 5-325 mg tablet 1 tab PO Q6H PRN (Reason: pain) Qty: 16 0RF ondansetron 4 mg tablet,disintegrating 4 mg PO Q8H PRN (Reason: nausea and vomiting) Qty: 10 0RF Referrals: Omer Roper MD [Primary Care Provider] - Stand Alone Forms: Patient Portal/API
[2022-09-29] MEDS: HYDROMORPHONE 1 MG INJ IV (22:37)
[2022-09-29] MEDS: APIXABAN 5 MG TABLET PO (22:37)
== END 2022-09-29 22:50 | disposition home or self-care (01) ==
PROVIDERS: Emergency Medicine; Emergency Provider Emergency Medicine; PCP Internal Medicine
DX: I82.C12 Acute embolism and thrombosis of left internal jugular vein (principal); R07.9 Chest pain, unspecified
CPT/HCPCS: 36415; 70496; 70498; 71045; 71275; 80053; 82550; 83690; 83735; 84484; 85025; 85610; 85730; 93005; 93971; 96374; 99284; J1170; Q9967

== ENCOUNTER 2023-06-10 15:29 | Emergency (ER) | payer OTHER, SELFPAY ==
[2023-06-10] VITALS (14 sets, daily range): BP systolic 96–113; BP diastolic 53–66; PULSE 110–142; RESP 15–28; TEMP 36.8–39.5; O2SAT 92–96; BMI 25.0
--- NOTE | 2023-06-10 15:55 | ED_ITS ---
HPI - Fever General Chief Complaint: Fever Stated Complaint: high fever, heart rate 124, blood oxygen 94, Time Seen by Provider: 06/10/23 15:33 Source: patient and family Mode of arrival: Family Vehicle History of Present Illness HPI Narrative: 63-year-old female with history of biliary cancer on Dabrafenib and Tramedanib presents by private vehicle from home for fever, increased heart rate, decreased oxygen saturations at home. There was also a questionable ?catatonic state? for 30 minutes earlier this morning. EMS assessed the patient and fast was negative. Patient is currently alert, oriented, at her baseline mental status. No anti-inflammatories or other antipyretics taken prior to arrival. Related Data Previous Rx's Medication Instructions Recorded hydrocodone 5 mg-acetaminophen 325 1 tab PO Q6H PRN pain #16 tabs 09/30/21 mg tablet ondansetron 4 mg disintegrating 4 mg PO Q8H PRN nausea and 09/30/21 tablet vomiting #10 tabs apixaban 5 mg tablet (Eliquis) 5 mg PO BID #180 tabs 09/29/22 prednisone 10 mg tablet 10 mg PO DAILY #9 tabs 06/10/23 Allergies Allergy/AdvReac Type Severity Reaction Status Date / Time bee venom protein (honey bee) Allergy Anaphylaxis Verified 06/10/23 15:44 latex Allergy Hives Verified 06/10/23 15:44 erythromycin base AdvReac Vomiting Verified 06/10/23 15:44 Review of Systems Review of Systems Narrative: Negative except as noted above Patient History Medical History Cholangiocarcinoma Breast cancer Social History Smoking Status: Never smoker Smoking Status: Never smoker alcohol intake frequency: 0-2 drinks per day Substance Use Type: does not use Exam Initial Vital Signs Initial Vital Signs: Vital Signs Pulse Rate 142 H 06/10/23 15:37 Respiratory Rate 20 06/10/23 15:37 Pulse Oximetry 92 06/10/23 15:37 Const: Awake, alert, no acute distress, nontoxic appearing Cardiac: Tachycardia, regular rhythm RESP: unlabored, clear bilaterally, no wheezing GI: Soft, generalized tenderness to deep palpation without rebound or guarding MSK: Atraumatic, full range of motion, pulses equal Skin: Warm, Dry, intact, no rashes Neuro: AO x3, CN II-XII grossly intact, moves all extremities Course Orders Ordered: Discontinued Medications Sodium Chloride (Normal Saline 0.9%) 1,000 mls @ 1,000 mls/hr IV BOLUS ONE Stop: 06/10/23 16:43 Last Infusion: 06/10/23 18:00 Dose: Infused Documented By: Infusion: 06/10/23 17:37 Dose: 1,000 mls/hr Documented By: Admin: 06/10/23 16:08 Dose: 1,000 mls/hr Documented By: RANDA Cefepime HCl 2 gm/ Sodium (Chloride) 100 mls @ 200 mls/hr IV NOW ONE Stop: 06/10/23 15:45 Last Infusion: 06/10/23 18:27 Dose: Infused Documented By: Admin: 06/10/23 17:25 Dose: 200 mls/hr Documented By: RANDA Sodium Chloride (Normal Saline 0.9%) 1,000 mls @ 1,000 mls/hr IV BOLUS ONE Stop: 06/10/23 18:47 Last Infusion: 06/10/23 19:46 Dose: Infused Documented By: Admin: 06/10/23 18:26 Dose: 1,000 mls/hr Documented By: ARIN Ketorolac Tromethamine (Ketorolac 30 Mg/Ml Vial) 15 mg IV NOW ONE Stop: 06/10/23 17:21 Last Admin: 06/10/23 18:26 Dose: 15 mg Documented By: ARIN Ondansetron HCl (Ondansetron 4 Mg/2 Ml Inj) 4 mg IV NOW PRN PRN Reason: Nausea And Vomiting Ondansetron HCl (Ondansetron 4 Mg Odt) 4 mg SL NOW PRN PRN Reason: Nausea And Vomiting Prednisone (Prednisone 20 Mg Tablet) 30 mg PO NOW ONE Stop: 06/10/23 17:49 Last Admin: 06/10/23 18:25 Dose: 30 mg Documented By: ARIN Vital Signs Vital signs: Vital Signs - 8 hr 06/10/23 15:37 06/10/23 15:40 06/10/23 16:00 Temperature 103.1 F H Pulse Rate 142 H 141 H 141 H Respiratory Rate 20 28 H 21 Blood Pressure 113/66 Pulse Oximetry 92 94 93 Oxygen Delivery Method Room Air 06/10/23 16:10 06/10/23 16:10 06/10/23 16:30 Temperature Pulse Rate 137 H 125 H Respiratory Rate 16 15 Blood Pressure 106/61 Pulse Oximetry 95 95 Oxygen Delivery Method 06/10/23 16:30 06/10/23 17:00 06/10/23 17:30 Temperature Pulse Rate 121 H 120 H Respiratory Rate 22 21 Blood Pressure 102/57 L Pulse Oximetry Oxygen Delivery Method 06/10/23 17:31 06/10/23 17:31 Temperature Pulse Rate 120 H Respiratory Rate 21 Blood Pressure 97/53 L Pulse Oximetry Oxygen Delivery Method MDM - Fever Lab Data 06/10/23 15:45 06/10/23 15:45 Labs: Lab Results 06/10/23 06/10/23 06/10/23 Range/Units 15:45 16:05 17:19 WBC 3.6 L (4.5-11.0) X10^3/uL RBC 3.87 L (4.0-5.2) X10^6/uL Hgb 11.7 L (12.0-16.0) g/dL Hct 34.3 L (36-46) % MCV 88.7 (80-100) fL MCH 30.3 (26-34) PG MCHC 34.2 (30-36) % RDW 13.8 (11.6-14.8) % Plt Count 172 (150-400) X10^3/uL Neut % (Auto) Not Reportable Lymph % (Auto) Not Reportable [place] % (Auto) Not Reportable Eos % (Auto) Not Reportable Baso % (Auto) Not Reportable Lymph # (Auto) Not Reportable [place] # (Auto) Not Reportable Baso # (Auto) Not Reportable Total Counted 100 Seg Neutrophils % 65.0 (38-70) % Band Neutrophils % 4.0 (3-7) % Lymphocytes % (Manual) 19.0 L (25-45) % Monocytes % (Manual) 12.0 H (2-11) % Neutrophils # (Manual) 2484 L (9947-2305) /uL RBC Morphology Normal morphology PT 14.5 H (9.4-12.5) SECONDS INR 1.3 (0.9-1.3) APTT 67 H (25.1-36.5) SECONDS Sodium 133 L (137-145) mmol/L Potassium 3.5 (3.4-5.1) mmol/L Chloride 107 (98-107) mmol/L Carbon Dioxide 21 L (22-32) mmol/L BUN 14 (7-17) mg/dL Creatinine 0.63 (0.52-1.04) mg/dL Estimated GFR > 60 (>60) mL/min BUN/Creatinine Ratio 22.2 H (6-22) Glucose 126 H (80-110) mg/dL Lactate 1.0 (0.7-2.1) mmol/L Calcium 8.7 (8.4-10.2) mg/dL Total Bilirubin 0.7 (0.2-1.3) mg/dL AST 39 H (14-36) IU/L ALT 19 (<35) IU/L Alkaline Phosphatase 71 (38-126) U/L Ammonia 14 (9-30) umol/L Troponin I < 0.012 (0.01-0.034) ng/mL NT-Pro-B Natriuret Pep 21 (<125) pg/mL Total Protein 6.9 (6.3-8.2) g/dL Albumin 3.6 (3.5-5.0) g/dL Globulin 3.3 (1.7-4.1) g/dL Albumin/Globulin Ratio 1.1 (1.0-2.8) Lipase 69 (23-300) U/L Procalcitonin 0.31 (<0.5) ng/mL Urine Color Yellow Urine Appearance Clear Urine pH 5.5 (4.5-8.0) Ur Specific [place] 1.010 (1.000-1.035) Urine Protein Negative (Negative) Urine Glucose (UA) Negative (Negative) g/dL Urine Ketones Negative (NEGATIVE) Urine Occult Blood Negative (Negative) Urine Nitrate Negative (Negative) Urine Bilirubin Negative (NEGATIVE) Urine Urobilinogen 1.0 (0.2) E.U./dL Ur Leukocyte Esterase Negative (NEGATIVE) Urine RBC 0-1/hpf (0-5/HPF) Urine WBC 1-5/hpf (0-5/HPF) Ur Squamous Epith Cells 0-1 /hpf (0-5/HPF) Urine Bacteria Occasional (0-1) (None) Urine Mucus 2+ H (Negative) Ur Culture Indicated? Cult not indicated Vol Urine Centrifuged 10ml (spun) Chlamy pneumoniae PCR Not detected (Not Detect) Adenovirus (PCR) Not detected (Not Detect) B.parapertussis DNA PCR Not detected (Not Detecte) Coronavirus OC43 (PCR) Not detected (Not Detect) Coronavirus HKU1 (PCR) Not detected (Not Detect) Coronavirus 229E (PCR) Not detected (Not Detect) SARS-CoV-2 (PCR) Not detected (Not Detecte) Coronavirus NL63 (PCR) Not detected (Not Detect) Human Metapneumovir PCR Not detected (Not Detect) Influenza Type A (PCR) Not detected (Not Detect) Influenza Type B (PCR) Not detected (Not Detect) M. pneumoniae (PCR) Not detected (Not Detect) Parainfluenza 1 (PCR) Not detected (Not Detect) Parainfluenza 2 (PCR) Not detected (Not Detect) Parainfluenza 3 (PCR) Not detected (Not Detect) Parainfluenza 4 (PCR) Not detected (Not Detect) RSV (PCR) Not detected (Not Detect) Entero/Rhino (PCR) Not detected (Not Detect) MDM Narrative Medical decision making narrative: Fever in patient on chemotherapy drugs. Patient was febrile, tachycardic on arrival with initial pulse ox low 90s. Patient reports chronic shortness of breath and abdominal pain, but states that this is somewhat worse today. Patient states she recently had rooney scan and evaluation at [facility] [address] 4 days prior. [facility] paged to provide records. Laboratory work is reviewed, significant for WBC count 3.6, hemoglobin 11.7, sodium 133, potassium 3.5, creatinine 0.63, T bili 0.7, AST 39, ALT 19, alk phos 71, ammonia 14. Patient refused chest x-ray and CT of the abdomen and pelvis. When she arrived she stated that her symptoms were worse than they usually are, however when radiology arrived to take patient to her scans she stated that she felt the same as she always had and did not want to pay anymore than she had to for unecessary testing. Discussed case with on-call Oncology at [facility]. Patient has documented history of pyrexia following her oral chemotherapy drugs. Since patient's laboratory work today is grossly unchanged from Saturday per their review they did not recommend any additional testing or antibiotics at this time. They recommend 30 mg of prednisone for 3 days and to stopped taking all of her oral chemotherapy drugs until she can follow up and see her oncologist in person. Patient given initial dose of prednisone in the emergency department. She was informed of oncology recommendations and given strict ED return precautions. Discharge Plan Departure Patient Disposition: Home Clinical Impression: Fever of unknown origin Instructions: DI for Fever (Symptom) -- Adult Activity Restrictions/Additional Instructions: Oncology at [facility] recommends 30 mg of prednisone for the next 3 days. Your 1st dose was given to you in the emergency department. They also recommend holding both of your chemo medications until you can speak with the Oncology Clinic. Your laboratory work is grossly unchanged from when he had labs on Saturday. If you notice any new or worsening symptoms please come back for additional assessments. Prescriptions: New prednisone 10 mg tablet 10 mg PO DAILY Qty: 9 0RF No Action hydrocodone-acetaminophen 5-325 mg tablet 1 tab PO Q6H PRN (Reason: pain) Qty: 16 0RF ondansetron 4 mg tablet,disintegrating 4 mg PO Q8H PRN (Reason: nausea and vomiting) Qty: 10 0RF Eliquis 5 mg tablet 5 mg PO BID Qty: 180 0RF Referrals: Omer Roper MD [Primary Care Provider] - Stand Alone Forms: Patient Portal/API
[2023-06-10 16:07] LABS: Hematocrit 34.3 % (36-46); Hemoglobin 11.7 g/dL (12.0-16.0); Mean Corpuscular HGB Conc 34.2 % (30-36); Mean Corpuscular Hemoglobin 30.3 PG (26-34); Mean Corpuscular Volume 88.7 fL (80-100); Platelet Count 172 X10^3/uL (150-400); Red Blood Cell Count 3.87 X10^6/uL (4.0-5.2); Red Cell Distribution Width 13.8 % (11.6-14.8); White Blood Cell Count 3.6 X10^3/uL (4.5-11.0)
[2023-06-10] MEDS: SODIUM CHLORIDE 0.9% 1,000 ML 1000 ML IV ×2 (16:08→18:26)
[2023-06-10 16:15] LABS: INR 1.3 (0.9-1.3); Prothrombin Time 14.5 SECONDS (9.4-12.5)
[2023-06-10 16:16] LABS: Add Manual Diff / Slide Review YES
[2023-06-10 16:18] LABS: PTT Partial Thromboplastin Tim 67 SECONDS (25.1-36.5)
[2023-06-10 16:21] LABS: Alanine Aminotransferase 19 IU/L (<35); Albumin 3.6 g/dL (3.5-5.0); Albumin Globulin Ratio 1.1 (1.0-2.8); Alkaline Phosphatase 71 U/L (38-126); Aspartate Aminotransferase 39 IU/L (14-36); BUN Creatinine Ratio 22.2 (6-22); Bilirubin Total 0.7 mg/dL (0.2-1.3); Blood Urea Nitrogen 14 mg/dL (7-17); Calcium 8.7 mg/dL (8.4-10.2); Carbon Dioxide 21 mmol/L (22-32); Chloride 107 mmol/L (98-107); Estimated Glomerular Filt Rate > 60 mL/min (>60); Globulin 3.3 g/dL (1.7-4.1); Glucose 126 mg/dL (80-110); HEMOLYSIS < 15 (0-50); Lipase 69 U/L (23-300); Potassium 3.5 mmol/L (3.4-5.1); Sodium 133 mmol/L (137-145); Total Protein 6.9 g/dL (6.3-8.2)
[2023-06-10 16:33] LABS: Troponin I < 0.012 ng/mL (0.01-0.034)
[2023-06-10 16:38] LABS: Procalcitonin 0.31 ng/mL (<0.5)
[2023-06-10 16:48] LABS: Neutrophils Absolute Manual 2484 /uL (3000-5900); Total Cells Counted 100
[2023-06-10 16:49] LABS: Adenovirus Not Detected (Not Detect); B. parapertussis Not Detected (Not Detecte); Bordetella pertussis Not Detected (Not Detect); Chlamydophila pneumoniae Not Detected (Not Detect); Coronavirus 229E Not Detected (Not Detect); Coronavirus HKU1 Not Detected (Not Detect); Coronavirus NL 63 Not Detected (Not Detect); Coronavirus OC43 Not Detected (Not Detect); Human Metapneumovirus Not Detected (Not Detect); Human Rhinovirus/Enterovirus Not Detected (Not Detect); Influenza A Not Detected (Not Detect); Influenza B Not Detected (Not Detect); Mycoplasma pneumoniae Not Detected (Not Detect); Parainfluenza Virus 1 Not Detected (Not Detect); Parainfluenza Virus 2 Not Detected (Not Detect); Parainfluenza Virus 3 Not Detected (Not Detect); Parainfluenza Virus 4 Not Detected (Not Detect); RBC Morphology Normal Morphology; Respiratory Syncytial Virus Not Detected (Not Detect); SARS- CoV-2 Not Detected (Not Detecte)
[2023-06-10 17:12] LABS: NT-proBNP (BNP-Adult 18+) 21 pg/mL (<125)
[2023-06-10 17:12] LABS: Ammonia (NH3) 14 umol/L (9-30)
--- NOTE | 2023-06-10 17:20 | PC.NURSE ---
Patient ambulated to bathroom @ 1700 and unable to produce urine sample. Pt informed of need for urine d/t sepsis protocol and antibiotics ordered. Pt agrees to urinary catheter for sample. All silicone catheter placed with clear, yellow urine return.
[2023-06-10] MEDS: CEFEPIME 2 GM in SODIUM CHLORIDE 0.9% 100 ML IV (17:25)
[2023-06-10 17:44] LABS: Appearance Urine UA CLEAR; Bilirubin Urine UA NEGATIVE (NEGATIVE); Color Urine UA YELLOW; Glucose Urine UA NEGATIVE (Negative); Ketones Urine UA NEGATIVE (NEGATIVE); Leukocyte Esterase Urine UA NEGATIVE (NEGATIVE); Nitrite Urine UA NEGATIVE (Negative); Occult Blood Urine UA NEGATIVE (Negative); Protein Urine UA NEGATIVE (Negative)
[2023-06-10 17:46] LABS: pH Urine UA 5.5 (4.5-8.0)
[2023-06-10 17:54] LABS: Bacteria Urine Occasional (0-1); Culture Indicated Urine Cult Not Indicated; Mucus Urine 2+ (Negative); RBC Urine 0-1/HPF (0-5/HPF); Squamous Epithelial Cell Urine 0-1 /HPF (0-5/HPF); Urine Volume 10mL (spun); WBC Urine 1-5/HPF (0-5/HPF)
[2023-06-10] MEDS: predniSONE 20 MG TABLET 30 MG PO (18:25)
[2023-06-10] MEDS: KETOROLAC 30 MG/ML VIAL 15 MG IV (18:26)
== END 2023-06-10 19:48 | disposition home or self-care (01) ==
PROVIDERS: Emergency Provider Emergency Medicine; PCP Internal Medicine
DX: R50.9 Fever, unspecified (principal); R00.0 Tachycardia, unspecified; R10.9 Unspecified abdominal pain; Z79.01 Long term (current) use of anticoagulants; Z20.822 Contact with and (suspected) exposure to COVID-19
CPT/HCPCS: 36415; 80053; 81001; 82140; 83605; 83690; 83880; 84145; 84484; 85007; 85025; 85610; 85730; 87040; 87633; 96365; 96375; 99284; 99285; J0692; J1885